=== PATIENT | female | born 1975 | race Caucasian/White ===

== ENCOUNTER → 2018-11-08 | Outpatient (REF) | LOC: ZLAB.WCH 09:12 | DX: Z01.89 Encounter for other specified special examinations (principal) ==

== ENCOUNTER → 2018-11-22 | Outpatient (REF) ==
[2018-11-22 14:16] LABS: IRON,SERUM 63 ug/dL (35-150)
[2018-11-22 14:25] LABS: TOTAL IRON BINDING CAPACITY 484 ug/dL (265-497)
[2018-11-22 14:52] LABS: FERRITIN 5 ng/mL (6-137)
== END ==
LOC: ZLAB.WCH 14:00
PROVIDERS: Family Medicine
DX: Z01.89 Encounter for other specified special examinations (principal)

== ENCOUNTER → 2019-02-22 | Outpatient (CLI) | payer SELFPAY | LOC: COL.CARD 05:45 | DX: I07.1 Rheumatic tricuspid insufficiency (principal) ==

== ENCOUNTER 2020-05-19 06:52 | Inpatient (IN) | payer SELFPAY ==
[~2020-05-19] VITALS: Ht 175.3 cm; Wt 93.6 kg
[2020-05-19] VITALS (31 sets, daily range): BP systolic 123–184; BP diastolic 65–95; PULSE 74–100; TEMP 97.3–97.9
[~2020-05-19 06:52] MED LIST: ALIVE PRENATAL1 EACH PO; CALCIUM ANTACI750 M1 PO; COLACE 100100 MG/CAP PO; CRANBERRY 100 M1 SGL; PROCTOZONE-HC2.5% RC
[2020-05-19] MEDS ORDERED: NATURAL IRON65 MG (07:49)
[2020-05-19 08:56] LABS: BASO % 0.4 % (0.0-2.0); EOS % 0.4 % (0-4.0); GRAN # 7.2 (1.4-6.5); GRAN % 76.8 % (42.2-75.2); HEMOGLOBIN 13.2 g/dl (12.5-16.0); LYMPH # 1.4 (1.2-3.4); LYMPH % 14.7 % (20.0-51.0); MEAN CELL VOLUME 89 fl (80.0-100.0); MEAN CORPUSCULAR HEMOGLOBIN 32 pg (27.0-31.0); MEAN CORPUSCULAR HGB CONC 36 g/dl (33.0-37.0); MEAN PLATELET VOLUME 9.3 fl (7.4-10.4); MONO # 0.6 (0.1-0.6); MONO % 6.8 % (1.7-9.3); PLATELET COUNT 243 K/mm3 (130-400); RED BLOOD COUNT 4.15 M/mm3 (4.10-5.30); REDCELL DISTRIBUTION WIDTH-CV 14.2 % (11.5-14.5)
[2020-05-19 08:58] LABS: HEMATOCRIT 36.8 % (37.0-47.0)
--- NOTE | 2020-05-19 09:03 | NUR ---
0658 - Pt and spouse arrive ambulatory to unit for scheduled induction of labor. Pt changes into gown, EFM explained and placed. Pt denies leaking of fluid and vaginal bleeding, reports a "few contractions on tuesday", and reports good movement. IV started in LH, labs drawn, LR started per protocol. Assessment and vitals done. Consents discussed and signed. Pt repositioned for comfort. Dr. Ding on unit, notified. 819 - Dr. Ding to bedside. SVE per provider /, unable to feel head. Ultrasound done at bedside by Dr. Dnig determines breech position. Pitocin stopped at this time. Pt and spouse counseled on options of or version attempt by Dr. Ding. Pt and spouse given time to discuss. 08 - Dr. Ding called back to bedside. Pt verbally consents to version at this time. Per physician order, pt given 0.125mg terbutaline IV. Pt placed supine with arms above head. Binu Osborn RN to bedside to assist. Version successfully complete by Dr. Ding. 0848 - AROM at this time, clear fluid returned. SVE per Dr. Ding /-2. Pitocin restarted at 2mu/ml/hr at 0852. Pt repositioned for comfort.
--- NOTE | 2020-05-19 09:31 | NUR ---
Pt requesting epidural at this time. Ene Carreno CRNA notified.
--- NOTE | 2020-05-19 14:11 | NUR ---
1112 - Central monitoring system down, RN to bedside and remains in room. 1135 - Pt reporting discomfort with contractions, feeling more pressure. SVE /-2. Pt repositioned LL. 1211 - Pt increasingly uncomfortable with contractions, stating she feels a lot of pressure and discomfort across the lower abdomen. Pt tearful. Ene Carreno CRNA notified. SVE /-1 1218 - Guevara catheter placed at this time. Pt reports feeling catheter insertion. 1224 - Ene Carreno CRNA to bedside at this time. 1235 - Pt reports increasing pressure and feeling the urge to push. SVE /-1. Dr. Ding notified. Pt remains very uncomfortable and tearful with contractions. 1246 - Pt again reports feeling urge to push. SVE /-1 1300 - Pt repositioned RL with LL in [facility]. Dr. Ding called to check in, is on his way to room. 1305 - Dr. Ding at bedside. Bed broken down and pt positioned for delivery. SVE per provider AL/100/0. Guevara removed at [address] Ding. Pt given verbal ok by Dr. Ding to push with contractions. FHR strip reviewed by physician. BP history discussed. Physician remains at bedside. 1317 - Pt directed by physician to breathe through next 2-3 contractions. VS review[address] by Dr[address] Ding, order received for 10mg Labetalol to be given IV now. 1325 - SVE 10/100/0 per provider. Pt instructed to push with contractions. 1327 - Male infant delivered spontaneously by Dr. Ding. Loose nuchal x3. Infant placed on mother's abdomen, care of transferred to Laura Freire RN of nursery. Cord clamped and cut by Dr. Ding, cord blood collected by physician. Placenta delivered spontaneously at 1330. Pitocin started per protocol at this time. Pericare provided, Pt repositioned for comfort.
[2020-05-20 02:00] VITALS: BP 128/70; PULSE 76; TEMP 97.8
[2020-05-20 07:00] VITALS: BP 156/76; PULSE 79; TEMP 98.3
[2020-05-20] MEDS ORDERED: PROCARDIA XL 3030 MG PO (08:38)
[2020-05-20] MEDS ORDERED: MOTRIN 800800 MG/TAB PO (08:39)
--- NOTE | 2020-05-20 09:57 | NUR ---
Initial visit; Parents thanked [employer] for offering congratulations and God's blessings for the of their son. [employer] thanked family for choosing [facility].
[2020-05-20 11:05] VITALS: BP 127/72; PULSE 77; TEMP 97.7
[2020-05-20 15:35] VITALS: BP 133/69; PULSE 83; TEMP 97.8
[2020-05-20 20:30] VITALS: BP 124/66; PULSE 73; TEMP 98.4
[2020-05-21 07:04] VITALS: BP 144/77; PULSE 78; TEMP 98
--- NOTE | 2020-05-21 16:30 | NUR ---
Discharge instructions given, pt to boarder status and will stay in 208.
== END 2020-05-21 17:00 | disposition home or self-care (01) | DRG 807 ==
LOC: LDR 06:52 → OB 08:26
PROVIDERS: ADMIT Obstetrics & Gynecology
PROC: 10E0XZZ Delivery of Products of Conception, External Approach (ICD-10-PCS; principal; 2020-05-19)
PROC: 10S0XZZ Reposition Products of Conception, External Approach (ICD-10-PCS; 2020-05-19)
PROC: 10907ZC Drainage of Amniotic Fluid, Therapeutic from Products of Conception, Via Natural or Artificial Opening (ICD-10-PCS; 2020-05-19)
DX: O32.1XX0 Maternal care for breech presentation, not applicable or unspecified (principal); Z37.0 Single live birth; O69.81X0 Labor and delivery complicated by cord around neck, without compression, not applicable or unspecified; O13.4 Gestational [pregnancy-induced] hypertension without significant proteinuria, complicating childbirth; Z3A.40 40 weeks gestation of pregnancy
CPT/HCPCS: J2590; J3105; J7120